=== PATIENT | female | born 1975 | race Caucasian/White ===

== ENCOUNTER 2022-03-29 01:10 | Day surgery (SDC) | payer BC, SELFPAY ==
[2022-03-09 11:58] VITALS: BMI 22.4
--- NOTE | 2022-03-29 06:55 | WPDANESEPPF ---
Anes - Initial Pre Proc Eval Procedure: Operation Date: 03/29/22 08:00 Proposed Procedures p Screening Colonoscopy - Sathya Pelaez MD Date/Time: 03/29/22 06:55 Surgeon: Sathya Pelaez MD Pre Op Diagnosis: neoplasm screening Patient Data Age: 46 Gender: F Height: 1.65 m Weight: 61 kg Allergies Allergy/AdvReac Type Severity Reaction Status Date / Time No Known Allergies Allergy Verified 03/29/22 06:55 Home Medications Medication Instructions Recorded Confirmed Type levothyroxine 50 mcg tablet 50 tablet PO DAILY 03/09/22 03/29/22 History Patient hx anesthesia problems: none Family hx anesthesia problems: none Results Review: All pre-operative results and documents have been reviewed as part of the pre-operative evaluation. [facility] Past Medical History Medical History (Updated 03/29/22 @ 06:56 by Thuan Georges DO) Hypothyroidism Social History Social History Smoking status: Never smoker Alcohol intake: never Substance use: never Substance use type: does not use Living arrangements: with family Spiritual care concerns: No Anes - Eval Final PreProcedure Day of Procedure 03/29/22 06:55 Patient weight: normal Heart: regular rate and rhythm Lungs: clear to auscultation Airway: Mallampati scale class II Neurological: alert and oriented Last oral intake: >/= 8 hours ASA classification: II Emergent: no Anesthetic plan: proceed Anesthesia type and monitoring: general GIVS and standard monitoring Results Review: All pre-operative results and documents have been reviewed as part of the pre-operative evaluation. Informed Consent: The patient's anesthetic plan and its attendant risks and benefits were discussed with the patient/family/POA. Questions were solicited and answers provided to the satisfaction of the patient/family/POA.
[2022-03-29] MEDS: LACTATED RINGERS 1,000 ML 150 ML IV CONT (07:05)
[2022-03-29 07:06] VITALS: BP 117/71; PULSE 74; RESP 18; TEMP 36.6; O2SAT 98; BMI 21.9
--- NOTE | 2022-03-29 08:02 | WPDGICN ---
Assessment and Plan Assessment and plan (1) Encounter for screening colonoscopy: Code(s): Z12.11 - Encounter for screening for malignant neoplasm of colon Status: Acute Assessment and Plan: Patient presents today for screening colonoscopy. High-fiber diet is advised. Further recommendations may be given after endoscopy. GI Consult Note Consult date/time: 03/29/22 08:02 Reason for consult: Neoplasia screening. HPI: June Araujo is a 46 year old female Presents for screening colonoscopy. Patient currently followed by Gynecology in [place]. She has had rather vague pelvic pain that sometimes the last for several hours. She reports on occasion is constipated but in general or bowel habits are normal. She is referred now for neoplasia screening. Her family history is noncontributory. Patient reports her current weight appetite bowel movements are normal. She denies any rectal bleeding. Review of Systems Review of Systems: Review of systems noncontributory. [facility] Past Medical History Medical History (Updated 03/29/22 @ 08:04 by Sathya Pelaez MD) Hypothyroidism Social History Social History Smoking status: Never smoker Alcohol intake: never Substance use: never Substance use type: does not use Living arrangements: with family Spiritual care concerns: No Meds Home Medications and Allergies Home Medications Medication Instructions Recorded Confirmed Type levothyroxine 50 mcg tablet 50 tablet PO DAILY 03/09/22 03/29/22 History Allergies Allergy/AdvReac Type Severity Reaction Status Date / Time No Known Allergies Allergy Verified 03/29/22 06:55 Vital Signs Vital Signs - 24 hr 03/29/22 07:06 Temperature 97.8 F Pulse Rate 74 Respiratory Rate 18 Blood Pressure 117/71 Pulse Oximetry 98 Oxygen Delivery Room Air Exam Narrative: Physical exam reveals patient to be alert. Vital signs stable. HEENT exam is unremarkable. Patient is anicteric. Lungs are clear to auscultation and percussion. Heart is without murmur or extra sounds. Abdominal exam bowel sounds are present soft nontender with no organomegaly. Digital external rectal exam is normal.
[2022-03-29 08:32] VITALS: BP 106/66; PULSE 96; RESP 17; O2SAT 99
[2022-03-29 08:42] VITALS: BP 105/59; PULSE 86; RESP 20; O2SAT 99
[2022-03-29 08:52] VITALS: BP 109/65; PULSE 73; RESP 17; O2SAT 100
== END 2022-03-29 09:02 | disposition home or self-care (01) ==
PROVIDERS: PCP Hospitalist; Visit Provider Internal Medicine Gastroenterology
PROC: 0DJD8ZZ Inspection of Lower Intestinal Tract, Via Natural or Artificial Opening Endoscopic (ICD-10-PCS; CPT 45378; principal; 2022-03-29 08:00)
DX: Z12.11 Encounter for screening for malignant neoplasm of colon (principal); K64.8 Other hemorrhoids; E03.9 Hypothyroidism, unspecified; R10.2 Pelvic and perineal pain
CPT/HCPCS: 45378; J2704; J7120